=== PATIENT | female | born 1975 | race Caucasian/White ===

== ENCOUNTER 2017-10-01 06:04 | Day surgery (SDC) | payer BC ==
[~2017-10-01] VITALS: Ht 177.8 cm; Wt 113.1 kg
[~2017-10-01 06:04] MED LIST: ACET325; Percocet 5-3251 EACH; Percocet 5-3251 EACH PO; Robaxin500 MG PO; SERT50 PO
[2017-10-01] MEDS ORDERED: GABA300 (06:47)
== END 2017-10-01 09:50 | disposition home or self-care (01) ==
LOC: ORSCSDS 06:04
DX: M20.11 Hallux valgus (acquired), right foot (principal); F17.210 Nicotine dependence, cigarettes, uncomplicated; E66.01 Morbid (severe) obesity due to excess calories; Z68.35 Body mass index [BMI] 35.0-35.9, adult; Z79.899 Other long term (current) drug therapy
CPT/HCPCS: C1713; J0690; J2250; J3010; J7120

== ENCOUNTER → 2017-12-07 | Outpatient (CLI) | payer BC ==
[~2017-12-07] MED LIST changes: +CYCL10 PO; +GABA300
== END ==
LOC: LAB 11:49 → LAB FUT 12-03 11:45
DX: G89.4 Chronic pain syndrome (principal)
CPT/HCPCS: G0480

== ENCOUNTER 2018-01-07 08:03 | Day surgery (SDC) | payer BC ==
[~2018-01-07] VITALS: Ht 177.8 cm; Wt 112.5 kg
[~2018-01-07 08:03] MED LIST changes: -CYCL10 PO
[2018-01-07] MEDS ORDERED: CYCL10 PO (08:53)
== END 2018-01-07 12:23 | disposition home or self-care (01) ==
LOC: ORSCSDS 08:03
PROVIDERS: Podiatrist Foot & Ankle Surgery
PROC: 0QSP04Z Reposition Left Metatarsal with Internal Fixation Device, Open Approach (ICD-10-PCS; principal; 2018-01-07 09:30)
DX: M20.12 Hallux valgus (acquired), left foot (principal); F17.210 Nicotine dependence, cigarettes, uncomplicated; F41.9 Anxiety disorder, unspecified; Z79.899 Other long term (current) drug therapy
CPT/HCPCS: C1713; J0690; J1885; J2250; J2405; J3010

== ENCOUNTER → 2021-07-09 | Outpatient (CLI) | payer BC ==
[~2021-07-09] MED LIST changes: +BUSPIRONE HCL7.5 M1; +CYCL10 PO; +Chantix1 MG; +FAMO20; +HYDCHL12.5; +OMEP20ER; +STIOLTO RESPIMAT4 G1; +VENL150ER; +VENL75ER
== END ==
LOC: LAB SHORT 13:07 → LAB 13:07
DX: G89.4 Chronic pain syndrome (principal); Z88.0 Allergy status to penicillin; Z88.8 Allergy status to other drugs, medicaments and biological substances
CPT/HCPCS: G0480

== ENCOUNTER 2021-07-16 08:44 | Day surgery (SDC) | payer BC ==
[~2021-07-16] VITALS: Ht 177.8 cm; Wt 128.0 kg
--- NOTE | 2021-07-16 10:38 | NUR ---
07/16/21 1038 [facility] 40 CM
== END 2021-07-16 11:13 | disposition home or self-care (01) ==
LOC: ORSCSDS 08:44
PROVIDERS: Student in an Organized Health Care Education/Training Program
PROC: 0DB78ZX Excision of Stomach, Pylorus, Via Natural or Artificial Opening Endoscopic, Diagnostic (ICD-10-PCS; principal; 2021-07-16 09:45)
PROC: 0DB48ZX Excision of Esophagogastric Junction, Via Natural or Artificial Opening Endoscopic, Diagnostic (ICD-10-PCS; principal; 2021-07-16 09:45)
PROC: 0DBL8ZX Excision of Transverse Colon, Via Natural or Artificial Opening Endoscopic, Diagnostic (ICD-10-PCS; principal; 2021-07-16 09:45)
PROC: 0DBP8ZX Excision of Rectum, Via Natural or Artificial Opening Endoscopic, Diagnostic (ICD-10-PCS; principal; 2021-07-16 09:45)
PROC: 0DBN8ZX Excision of Sigmoid Colon, Via Natural or Artificial Opening Endoscopic, Diagnostic (ICD-10-PCS; principal; 2021-07-16 09:45)
DX: K21.9 Gastro-esophageal reflux disease without esophagitis (principal); Z12.11 Encounter for screening for malignant neoplasm of colon; K29.70 Gastritis, unspecified, without bleeding; D12.3 Benign neoplasm of transverse colon; D12.5 Benign neoplasm of sigmoid colon; D12.8 Benign neoplasm of rectum; I10 Essential (primary) hypertension; G47.33 Obstructive sleep apnea (adult) (pediatric); J44.9 Chronic obstructive pulmonary disease, unspecified; F17.210 Nicotine dependence, cigarettes, uncomplicated; F41.8 Other specified anxiety disorders; E66.01 Morbid (severe) obesity due to excess calories; Z68.41 Body mass index [BMI] 40.0-44.9, adult; Z79.899 Other long term (current) drug therapy
CPT/HCPCS: 88305; 88342; J2704; J7120

== ENCOUNTER 2022-02-11 11:20 | Emergency (ER) | payer BC ==
[~2022-02-11] VITALS: Ht 177.8 cm; Wt 131.5 kg
== END 2022-02-11 13:00 | disposition home or self-care (01) ==
LOC: ER 11:20
DX: M79.605 Pain in left leg (principal); M79.89 Other specified soft tissue disorders; F17.200 Nicotine dependence, unspecified, uncomplicated; Z88.0 Allergy status to penicillin; Z88.8 Allergy status to other drugs, medicaments and biological substances; Z79.899 Other long term (current) drug therapy
CPT/HCPCS: 93926; 93971

== ENCOUNTER 2022-02-19 09:23 | Day surgery (SDC) | payer BC ==
[~2022-02-19] VITALS: Ht 177.8 cm; Wt 130.6 kg
== END 2022-02-19 11:38 | disposition home or self-care (01) ==
LOC: ORSCSDS 09:23
PROVIDERS: Orthopaedic Surgery
PROC: 01N54ZZ Release Median Nerve, Percutaneous Endoscopic Approach (ICD-10-PCS; principal; 2022-02-19 10:30)
DX: G56.03 Carpal tunnel syndrome, bilateral upper limbs (principal); F41.9 Anxiety disorder, unspecified; J44.9 Chronic obstructive pulmonary disease, unspecified; F32.A Depression, unspecified; K21.9 Gastro-esophageal reflux disease without esophagitis; E78.5 Hyperlipidemia, unspecified; G47.33 Obstructive sleep apnea (adult) (pediatric); E55.9 Vitamin D deficiency, unspecified; F17.210 Nicotine dependence, cigarettes, uncomplicated; E66.01 Morbid (severe) obesity due to excess calories; Z68.41 Body mass index [BMI] 40.0-44.9, adult; Z79.899 Other long term (current) drug therapy
CPT/HCPCS: J2250; J2704; J3010; J7120